=== PATIENT | male | born 1995 | race Caucasian/White ===

== ENCOUNTER 2021-05-30 15:48 | Emergency (ER) | payer MEDICAID ==
[~2021-05-30 15:48] MED LIST: Sodium Chloride 0.9% 10 ML Syringe FLUSH PRN
--- NOTE | 2021-05-30 15:48 | EDM.PDOC ---
ED HPI GENERAL MEDICAL PROBLEM - General Chief Complaint: General Stated Complaint: AMBULANCE Time Seen by Provider: 05/30/21 15:43 Source of Information: Reports: Patient History Limitations: Reports: No Limitations - History of Present Illness INITIAL COMMENTS - FREE TEXT/NARRATIVE: 26 y/o M was driving from [place] to [place] when he began experiencing CP around the base of the sternum sharp and aching 3/10. Also c/o gripping abd pn, nausea and stiffness in neck. Pt was put on Haldol a week ago by a Dr. Worthington who was treating the pt for possible schizophrenia. Pt beleives he is having an adverse reaction to the haldol. Hx of anxitey but does nto beleive this is his anxiety. Denies lutz, cp, pelvic pn, extremity pn, drugs, etoh. Abdominal Pain Score (Numeric/FACES): 5 - Related Data Allergies Allergy/AdvReac Type Severity Reaction Status Date / Time No Known Allergies Allergy Verified 05/30/21 15:46 Home Meds: Home Meds haloperidoL [Haldol] 3 mg PO BID 05/30/21 [History] ED ROS GENERAL - Review of Systems Review Of Systems: Comprehensive ROS is negative, except as noted in HPI. ED EXAM, GENERAL - Physical Exam Exam: See Below Exam Limited By: No Limitations General Appearance: Alert Eye Exam: Bilateral Eye: PERRL Ears: Normal External Exam, Normal Canal, Hearing Grossly Normal, Normal TMs Nose: Normal Inspection, Normal Mucosa, No Blood Throat/Mouth: Normal Inspection, Normal Lips, Normal Teeth, Normal Gums, Normal Oropharynx, Normal Voice, No Airway Compromise Head: Atraumatic, Normocephalic Neck: Normal Inspection, Supple, Non-Tender, Full Range of Motion Respiratory/Chest: No Respiratory Distress, Lungs Clear, Normal Breath Sounds, Other (chest tender at the xyphoid process) Cardiovascular: Normal Peripheral Pulses, Regular Rate, Rhythm, No Edema, No Gallop, No JVD, No Murmur, No Rub GI/Abdominal: Soft, Non-Tender, Other (tender lateral left adn R abd no visible ecchymosis, masses, distention. ) (Male) Exam: Deferred Rectal (Males) Exam: Deferred Back Exam: Normal Inspection, Full Range of Motion Extremities: Normal Inspection, Normal Range of Motion, Non-Tender, Normal Capillary Refill, No Pedal Edema Neurological: Alert, Normal Cognition, Normal Gait, Normal Reflexes, No Motor/Sensory Deficits Psychiatric: Normal Affect, Normal Mood Skin Exam: Warm, Dry, Intact #1 Interpretation EKG Date: 05/30/21 Time: 16:03 Rhythm: Other (sinus) [place]: LAD-Left [place] Deviation P-Wave: Present QRS: Normal ST-T: Normal QT: Normal Course - Vital Signs Last Recorded V/S: Last Vital Signs Temp 98.0 F 05/30/21 15:38 Pulse 68 05/30/21 15:38 Resp 18 05/30/21 15:38 BP 130/79 05/30/21 15:38 Pulse Ox 99 05/30/21 15:38 - Orders/Labs/Meds Orders: Active Orders 24 hr Category Date Time Status EKG Documentation Completion [RC] STAT Care 05/30/21 15:43 Active Peripheral IV Care [RC] . DIRECTED Care 05/30/21 15:44 Active Sodium Chloride 0.9% [Saline Flush] Med 05/30/21 15:43 Active 10 ml FLUSH ASDIRECTED PRN Peripheral IV Insertion Adult [OM.PC] Routine Oth 05/30/21 15:43 Ordered Medication Orders Sodium Chloride (Sodium Chloride 0.9% 10 Ml Syringe) 10 ml FLUSH ASDIRECTED PRN PRN Reason: Keep Vein Open Last Admin: 05/30/21 16:11 Dose: 10 ml Documented by: DARNELL Labs: Laboratory Tests 05/30/21 05/30/21 Range/Units 15:55 15:55 WBC 6.8 (5.0-10.0) 10^3/uL RBC 5.27 (4.6-6.2) 10^6/uL Hgb 16.7 (14.0-18.0) g/dL Hct 48.1 (40.0-54.0) % MCV 91.3 (80-100) fL MCH 31.7 (27.0-34.0) pg MCHC 34.7 (33.0-35.0) g/dL Plt Count 197 (150-450) 10^3/uL Neut % (Auto) 69.3 (42.2-75.2) % Lymph % (Auto) 17.4 L (20.5-50.1) % [place] % (Auto) 11.9 H (2-8) % Eos % (Auto) 1.0 (1.0-3.0) % Baso % (Auto) 0.4 (0.0-1.0) % Sodium 141 (136-145) mmol/L Potassium 4.1 (3.5-5.1) mmol/L Chloride 103 (98-107) mmol/L Carbon Dioxide 30 (21-32) mmol/L Anion Gap 12.1 (7-13) mEq/L BUN 20 H (7-18) mg/dL Creatinine 0.77 (0.70-1.30) mg/dL Est Cr Clr Drug Dosing 131.75 mL/min Estimated GFR (MDRD) > 60 BUN/Creatinine Ratio 26.0 (No establ ref range) Glucose 103 H (70-99) mg/dL Calcium 8.6 (8.5-10.1) mg/dL Magnesium 2.1 (1.8-2.4) mg/dL Total Bilirubin 0.7 (0.2-1.0) mg/dL AST 18 (15-37) U/L ALT 21 (16-63) U/L Alkaline Phosphatase 56 (46-116) U/L C-Reactive Protein < 0.2 (0.0-0.9) mg/dL Total Protein 7.1 (6.4-8.2) g/dL Albumin 4.2 (3.4-5.0) g/dL Globulin 2.9 Albumin/Globulin Ratio 1.4 Meds: Medications Generic Name Dose Route Start Last Admin Trade Name Aracelis PRN Reason Stop Dose Admin Sodium Chloride 10 ml 05/30/21 15:43 05/30/21 16:11 Sodium Chloride 0.9% 10 Ml Syringe FLUSH 10 ml ASDIRECTED PRN Administration Keep Vein Open Discontinued Medications Generic Name Dose Route Start Last Admin Trade Name Freq PRN Reason Stop Dose Admin Diphenhydramine HCl 50 mg 05/30/21 16:02 05/30/21 16:11 Diphenhydramine 50 Mg/Ml Sdv IVPUSH 05/30/21 16:03 50 mg ONETIME ONE Administration Ondansetron HCl 4 mg 05/30/21 16:02 05/30/21 16:11 Ondansetron 4 Mg/2 Ml Sdv IVPUSH 05/30/21 16:03 4 mg ONETIME ONE Administration - Re-Assessments/Exams Free Text/Narrative Re-Assessment/Exam: 05/30/21 16:54 The pt expressed complete resolution in his symptoms after the administration of Benadryl. I have advised the pt to stop taking Haldol and contact his Physician regarding his symptoms and visit today. Departure - Departure Time of Disposition: 16:55 Disposition: Home, Self-Care 01 Condition: Good Clinical Impression: Adverse drug reaction Qualifiers: Encounter type: initial encounter Qualified Code(s): T50.905A - Adverse effect of unspecified drugs, medicaments and biological substances, initial encounter - Discharge Information *PRESCRIPTION DRUG MONITORING PROGRAM REVIEWED*: Not Applicable *COPY OF PRESCRIPTION DRUG MONITORING REPORT IN PATIENT MINDY: Not Applicable Forms: ED Department Discharge Additional Instructions: Stop taking Haldol Contact your physician regarding your adverse drug reaction and ER visit today. If any new symptoms or concerns develop contact your primary care facility or return to the ER. Sepsis Event Note (ED) - Focused Exam Vital Signs: Vital Signs Temp Pulse Resp BP Pulse Ox 05/30/21 15:38 98.0 F 68 18 130/79 99 - My Orders Last 24 Hours: My Active Orders 05/30/21 15:43 EKG Documentation Completion [RC] STAT Sodium Chloride 0.9% [Saline Flush] 10 ml FLUSH ASDIRECTED PRN Peripheral IV Insertion Adult [OM.PC] Routine 05/30/21 15:44 Peripheral IV Care [RC] . DIRECTED - Assessment/Plan Last 24 Hours: My Active Orders 05/30/21 15:43 EKG Documentation Completion [RC] STAT Sodium Chloride 0.9% [Saline Flush] 10 ml FLUSH ASDIRECTED PRN Peripheral IV Insertion Adult [OM.PC] Routine 05/30/21 15:44 Peripheral IV Care [RC] . DIRECTED
[2021-05-30] MEDS ORDERED: Ondansetron 4 MG/2 ML SDV IVPUSH ONE (16:02)
[2021-05-30] MEDS ORDERED: diphenhydrAMINE 50 MG/ML SDV IVPUSH ONE (16:02)
[2021-05-30 16:27] LABS: ANION GAP 12.1 mEq/L (7-13); CHLORIDE,CL 103 mmol/L (98-107); SODIUM,NA 141 mmol/L (136-145)
== END 2021-05-30 17:04 | disposition home or self-care (01) ==
LOC: DL.ED 15:48
DX: R07.2 Precordial pain (principal); T43.4X5A Adverse effect of butyrophenone and thiothixene neuroleptics, initial encounter
CPT/HCPCS: 36415; 80053; 83735; 85025; 86140; 96374; 96375; 99284; J1200; J2405